=== PATIENT | female | born 1975 | race African-American/Black ===

== ENCOUNTER 2017-07-31 13:42 | Inpatient (IN) | payer MEDICAID ==
[~2017-07-31] VITALS: Ht 154.9 cm; Wt 98.8 kg
[2017-07-31] MEDS ORDERED: ACETAMINOPHEN 325 MG TAB PO ONE ×2 (13:52→14:00)
[2017-07-31] MEDS ORDERED: cefTRIAXone SOD 1,000 MG VL IM ONE (16:30)
[2017-07-31] MEDS ORDERED: cefTRIAXone 1GM/10ml IVPUSH 10 ML IV ONE (17:15)
[2017-07-31] MEDS ORDERED: AZITHROMYCIN 500MG/ 250ML 250 ML IV ONE (17:15)
[2017-07-31 17:36] LABS: Urine Bacteria MOD /hpf (None Seen); Urine Blood TRACE /uL (Negative); Urine Mucus FEW (None Seen); Urine Specific Gravity 1.017 (1.001-1.035); Urine WBC 159 /hpf (0 - 5); Urine WBC Clumps PRESENT /hpf (None Seen)
[2017-07-31 18:08] LABS: Basophils # (auto) 0 uL; Eosinophils # (auto) 0.2 uL; Lymphocytes # (auto) 1.7 uL; Platelet Count (auto) 373 10^3/uL (140-450)
[2017-07-31 18:10] LABS: Basophils % (auto) 0.5 % (0.0-2.0); Eosinophils % (auto) 2.2 % (0.0-7.0); Hematocrit 37.3 % (36.0-46.0); Hemoglobin 12.1 g/dL (12.2-16.2); Lymphocytes % (auto) 19.9 % (10.0-50.0); Mean Corpuscular Hemoglobin 21.3 pg (28.0-32.0); Mean Corpuscular Hgb Conc. 32.5 g/dL (32.0-36.0); Mean Corpuscular Volume 65.5 fL (80.0-100.0); Monocytes # (auto) 0.9 uL; Monocytes % (auto) 10.6 % (0.0-12.0); Neutrophils # (auto) 5.8 uL; Neutrophils % (auto) 66.8 % (37.0-80.0); Nucleated Red Blood Cells % 0.1 %; Red Blood Cells 5.69 10^6/uL (4.0-5.20); White Blood Cell 8.7 10^3/uL (4.4-10.8)
[2017-07-31 18:25] LABS: Albumin 3.1 g/dL (3.4-5.0); BUN/Creatinine Ratio 7.5; Bilirubin, Total 0.5 mg/dL (0.2-1.0); Calcium 8.6 mg/dL (8.5-10.1); Potassium 3.3 mmol/L (3.5-5.1)
[2017-07-31] MEDS ORDERED: SODIUM CHLORIDE 0.9% 1,000 ML IV ONE (18:30)
[2017-07-31] MEDS: SODIUM CHLORIDE 0.9% 1,000 ML IV SCH (18:44)
[2017-07-31] MEDS ORDERED: MORPHINE SULF INJ 2 MG/ML SYRINGE 1ML IV PRN ×2 (18:45)
[2017-07-31] MEDS ORDERED: LACTULOSE 20Gm/30ML SOLN PO PRN (18:45)
[2017-07-31] MEDS ORDERED: OSELTAMIVIR 75 MG CAP PO ONE (18:45)
[2017-07-31] MEDS ORDERED: TEMAZEPAM 15 MG CAP PO PRN (18:45)
[2017-07-31] MEDS ORDERED: LORazepam 0.5 MG TAB PO PRN (18:45)
[2017-07-31] MEDS ORDERED: ACETAMINOPHEN 500 MG TAB PO PRN (18:45)
[2017-07-31] MEDS ORDERED: PROMETHAZINE HCL 25 MG/ML 1ML IV PRN (18:45)
[2017-07-31] MEDS ORDERED: ALBUTEROL SULF 2.5 MG/0.5ML(0.5%) NEB SOLN NEB PRN (18:45)
[2017-07-31] MEDS ORDERED: PIPERACILLIN-TAZOB 3.375GM 50 ML IV ONE (18:45)
[2017-07-31] MEDS ORDERED: NITROGLYCERIN 0.4 MG SL TAB SL PRN (18:45)
[2017-07-31 21:20] VITALS: BP 134/82
[2017-07-31 22:00] VITALS: BP 134/82
[2017-07-31] MEDS: CLINDAMYCIN 600MG IV 50 ML IV SCH (23:11)
[2017-08-01] MEDS: PIPERACILLIN-TAZOB 3.375GM 50 ML IV SCH ×5 (00:35→23:34)
[2017-08-01] MEDS ORDERED: PNEUMOCOCCAL VACC POLYS 25 MCG/0.5 ML VIAL IM ONE (01:00)
[2017-08-01] MEDS ORDERED: INFLUENZA QUAD 2017-2018 0.5 ML SYRG IM ONE (01:00)
[2017-08-01] MEDS: ALBUTEROL SULF 2.5 MG/0.5ML(0.5%) NEB SOLN NEB SCH ×4 (01:12→18:50)
[2017-08-01] MEDS: SODIUM CHLORIDE 0.9% 1,000 ML IV SCH ×3 (02:31→18:44)
[2017-08-01 05:00] VITALS: BP 125/64
[2017-08-01] MEDS: CLINDAMYCIN 600MG IV 50 ML IV SCH (05:18)
[2017-08-01 06:33] LABS: Basophils # (auto) 0 uL; Eosinophils # (auto) 0.3 uL; Lymphocytes # (auto) 1.4 uL; Mean Corpuscular Hemoglobin 21.5 pg (28.0-32.0)
[2017-08-01 06:36] LABS: Basophils % (auto) 0.5 % (0.0-2.0); Eosinophils % (auto) 3.8 % (0.0-7.0); Hematocrit 33.6 % (36.0-46.0); Hemoglobin 11.1 g/dL (12.2-16.2); Lymphocytes % (auto) 18.1 % (10.0-50.0); Mean Corpuscular Volume 65.2 fL (80.0-100.0); Monocytes # (auto) 0.9 uL; Neutrophils # (auto) 5.1 uL; Neutrophils % (auto) 66.6 % (37.0-80.0); Nucleated Red Blood Cells % 0.1 %; Platelet Count (auto) 320 10^3/uL (140-450); Red Blood Cells 5.15 10^6/uL (4.0-5.20); Red Cell Distribution Width 18.8 % (11.8-14.3); White Blood Cell 7.7 10^3/uL (4.4-10.8)
[2017-08-01 06:48] LABS: Albumin 2.6 g/dL (3.4-5.0); BUN/Creatinine Ratio 7.1; Bilirubin, Total 0.5 mg/dL (0.2-1.0); Calcium 7.8 mg/dL (8.5-10.1); Potassium 3.1 mmol/L (3.5-5.1); Total Protein 7.8 g/dL (6.4-8.2)
[2017-08-01 08:00] VITALS: BP 106/55
[2017-08-01 09:00] VITALS: BP 106/77
[2017-08-01] MEDS: HYDROcodone-ACET 5/325MG TAB PO PRN ×2 (09:17→17:29)
[2017-08-01] MEDS ORDERED: AZITHROMYCIN 500MG/ 250ML 250 ML IV SCH (10:00)
[2017-08-01] MEDS: OSELTAMIVIR 75 MG CAP PO SCH ×2 (10:00→21:43)
[2017-08-01 13:00] VITALS: BP 92/63
[2017-08-01] MEDS ORDERED: POTASSIUM CHLORIDE 40 MEQ, LIDOCAINE 1% (LOCAL ANESTH.) 4 ML in SODIUM CHL 0.9% 100 ML IV ONE (14:15)
[2017-08-01 16:49] VITALS: BP 105/66
[2017-08-01 22:00] VITALS: BP 91/62
[2017-08-02] MEDS: ALBUTEROL SULF 2.5 MG/0.5ML(0.5%) NEB SOLN NEB SCH ×4 (00:37→19:12)
[2017-08-02] MEDS: SODIUM CHLORIDE 0.9% 1,000 ML IV SCH ×3 (02:12→18:39)
[2017-08-02 05:00] VITALS: BP 91/59
[2017-08-02] MEDS: PIPERACILLIN-TAZOB 3.375GM 50 ML IV SCH ×3 (05:40→17:52)
[2017-08-02 08:00] VITALS: BP 95/62
[2017-08-02 09:00] VITALS: BP 95/62
[2017-08-02] MEDS: OSELTAMIVIR 75 MG CAP PO SCH (10:00)
[2017-08-02 10:06] LABS: Basophils # (auto) 0.1 uL; Eosinophils # (auto) 0.2 uL; Eosinophils % (auto) 3.2 % (0.0-7.0); Hemoglobin 10.6 g/dL (12.2-16.2); Red Cell Distribution Width 18.7 % (11.8-14.3)
[2017-08-02 10:08] LABS: Basophils % (auto) 0.9 % (0.0-2.0); Hematocrit 32.6 % (36.0-46.0); Lymphocytes # (auto) 1.3 uL; Lymphocytes % (auto) 16.8 % (10.0-50.0); Mean Corpuscular Hemoglobin 21.1 pg (28.0-32.0); Mean Corpuscular Hgb Conc. 32.6 g/dL (32.0-36.0); Monocytes # (auto) 0.7 uL; Monocytes % (auto) 9.6 % (0.0-12.0); Neutrophils # (auto) 5.2 uL; Neutrophils % (auto) 69.5 % (37.0-80.0); Platelet Count (auto) 348 10^3/uL (140-450); Red Blood Cells 5.03 10^6/uL (4.0-5.20); White Blood Cell 7.5 10^3/uL (4.4-10.8)
[2017-08-02 10:20] LABS: Mean Corpuscular Volume 64.7 fL (80.0-100.0)
[2017-08-02 10:30] LABS: Albumin 2.5 g/dL (3.4-5.0); BUN/Creatinine Ratio 6.3; Bilirubin, Total 0.3 mg/dL (0.2-1.0); Calcium 7.8 mg/dL (8.5-10.1); Potassium 3.4 mmol/L (3.5-5.1); Total Protein 7.5 g/dL (6.4-8.2)
[2017-08-02 21:51] VITALS: BP 109/67
[2017-08-03] MEDS: PIPERACILLIN-TAZOB 3.375GM 50 ML IV SCH ×3 (00:09→11:42)
[2017-08-03] MEDS: ALBUTEROL SULF 2.5 MG/0.5ML(0.5%) NEB SOLN NEB SCH ×4 (00:55→19:23)
[2017-08-03] MEDS: SODIUM CHLORIDE 0.9% 1,000 ML IV SCH ×3 (04:08→18:51)
[2017-08-03 05:00] VITALS: BP 122/74
[2017-08-03 05:43] LABS: Eosinophils # (auto) 0.3 uL; Hemoglobin 10.8 g/dL (12.2-16.2); Monocytes # (auto) 0.6 uL; Nucleated Red Blood Cells % 0.2 %
[2017-08-03 05:46] LABS: Basophils # (auto) 0 uL; Basophils % (auto) 0.7 % (0.0-2.0); Eosinophils % (auto) 4.6 % (0.0-7.0); Hematocrit 33.6 % (36.0-46.0); Lymphocytes # (auto) 1.4 uL; Lymphocytes % (auto) 20.5 % (10.0-50.0); Mean Corpuscular Hemoglobin 21.1 pg (28.0-32.0); Mean Corpuscular Hgb Conc. 32.2 g/dL (32.0-36.0); Mean Corpuscular Volume 65.5 fL (80.0-100.0); Neutrophils # (auto) 4.5 uL; Neutrophils % (auto) 65.2 % (37.0-80.0); Platelet Count (auto) 378 10^3/uL (140-450); Red Blood Cells 5.13 10^6/uL (4.0-5.20); Red Cell Distribution Width 18.5 % (11.8-14.3)
[2017-08-03 06:01] LABS: Albumin 2.4 g/dL (3.4-5.0); Calcium 8.1 mg/dL (8.5-10.1); Potassium 3.4 mmol/L (3.5-5.1)
[2017-08-03 06:03] LABS: BUN/Creatinine Ratio 6.2
[2017-08-03 06:05] LABS: Bilirubin, Total 0.2 mg/dL (0.2-1.0); Total Protein 7.2 g/dL (6.4-8.2)
[2017-08-03 09:00] VITALS: BP 137/79
[2017-08-03 13:00] VITALS: BP 131/90
[2017-08-03] MEDS ORDERED: POTASSIUM CHL 20 Meq TABLET PO ONE (16:00)
[2017-08-03] MEDS ORDERED: LEVOFLOXACIN 500MG 100 ML IV ONE (16:00)
[2017-08-03] MEDS ORDERED: VANCOMYCIN PER PHARMACY 0 MG IV SCH (16:00)
[2017-08-03 17:00] VITALS: BP 135/77
[2017-08-03] MEDS ORDERED: VANCOMYCIN 1GM/250ML 250 ML IV SCH (17:00)
[2017-08-03] MEDS: VANCOMYCIN 1GM/250ML 250 ML IV SCH (19:17)
[2017-08-03 20:40] VITALS: BP 135/77
[2017-08-03 22:00] VITALS: BP 120/67
[2017-08-04] MEDS: ALBUTEROL SULF 2.5 MG/0.5ML(0.5%) NEB SOLN NEB SCH ×4 (00:19→18:44)
[2017-08-04] MEDS: SODIUM CHLORIDE 0.9% 1,000 ML IV SCH (03:36)
[2017-08-04] MEDS: VANCOMYCIN 1GM/250ML 250 ML IV SCH ×3 (03:36→19:55)
[2017-08-04 04:47] VITALS: BP 119/66
[2017-08-04 06:27] LABS: Basophils # (auto) 0.1 uL; Eosinophils # (auto) 0.3 uL; Lymphocytes # (auto) 1.5 uL; White Blood Cell 7.1 10^3/uL (4.4-10.8)
[2017-08-04 06:30] LABS: Eosinophils % (auto) 4.9 % (0.0-7.0); Hematocrit 33.8 % (36.0-46.0); Lymphocytes % (auto) 20.9 % (10.0-50.0); Mean Corpuscular Hemoglobin 21.3 pg (28.0-32.0); Mean Corpuscular Hgb Conc. 32.6 g/dL (32.0-36.0); Mean Corpuscular Volume 65.2 fL (80.0-100.0); Monocytes # (auto) 0.5 uL; Monocytes % (auto) 7.5 % (0.0-12.0); Neutrophils # (auto) 4.6 uL; Neutrophils % (auto) 65.7 % (37.0-80.0); Nucleated Red Blood Cells % 0.1 %; Platelet Count (auto) 428 10^3/uL (140-450); Red Blood Cells 5.18 10^6/uL (4.0-5.20); Red Cell Distribution Width 18.3 % (11.8-14.3)
[2017-08-04 06:46] LABS: Albumin 2.6 g/dL (3.4-5.0); BUN/Creatinine Ratio 3.8; Calcium 8.6 mg/dL (8.5-10.1); Potassium 3.8 mmol/L (3.5-5.1)
[2017-08-04 06:49] LABS: Bilirubin, Total 0.3 mg/dL (0.2-1.0); Total Protein 7.8 g/dL (6.4-8.2)
[2017-08-04 08:00] VITALS: BP 134/103
[2017-08-04 09:00] VITALS: BP 134/103
[2017-08-04] MEDS: LEVOFLOXACIN 500MG 100 ML IV SCH (09:15)
[2017-08-04 13:00] VITALS: BP 127/78
[2017-08-04 17:00] VITALS: BP 129/86
[2017-08-04] MEDS: HYDROcodone-ACET 5/325MG TAB PO PRN (21:03)
[2017-08-04 22:00] VITALS: BP 117/69
[2017-08-05] MEDS: ALBUTEROL SULF 2.5 MG/0.5ML(0.5%) NEB SOLN NEB SCH ×3 (00:19→11:50)
[2017-08-05] MEDS: VANCOMYCIN 1GM/250ML 250 ML IV SCH ×2 (03:05→11:15)
[2017-08-05 04:44] VITALS: BP 109/68
[2017-08-05] MEDS: HYDROcodone-ACET 5/325MG TAB PO PRN (07:36)
[2017-08-05 08:00] VITALS: BP 141/80
[2017-08-05] MEDS: LEVOFLOXACIN 500MG 100 ML IV SCH (09:06)
[2017-08-05 09:42] VITALS: BP 141/80
[2017-08-05 11:07] VITALS: BP 141/80
== END 2017-08-05 12:50 | disposition home or self-care (01) | DRG 720 ==
LOC: ER 13:42 → TELE 13:43 → ER 18:26 → TELE-WESTW 20:51
PROVIDERS: ADMIT Internal Medicine; ATTEND Internal Medicine
DX: A41.9 Sepsis, unspecified organism (principal); E43 Unspecified severe protein-calorie malnutrition; J18.1 Lobar pneumonia, unspecified organism; I11.9 Hypertensive heart disease without heart failure; E66.01 Morbid (severe) obesity due to excess calories; N39.0 Urinary tract infection, site not specified; D57.3 Sickle-cell trait; I44.0 Atrioventricular block, first degree; E87.6 Hypokalemia; B96.20 Unspecified Escherichia coli [E. coli] as the cause of diseases classified elsewhere; K59.00 Constipation, unspecified; G47.00 Insomnia, unspecified; Z68.41 Body mass index [BMI] 40.0-44.9, adult; Z82.49 Family history of ischemic heart disease and other diseases of the circulatory system; Z83.3 Family history of diabetes mellitus; Z98.51 Tubal ligation status; Z23 Encounter for immunization
CPT/HCPCS: 36415; 71045; 71046; 71250; 80053; 80061; 80202; 81001; 83605; 85025; 87040; 87086; 87088; 87186; 87400; 87493; 93005; 93306; 94640; 96361; 96365; 96366; 96367; 96375; J0696; J1956; J2001; J2543; J3490

== ENCOUNTER 2018-09-09 12:56 | Emergency (ER) | payer OTHER, MEDICAID ==
[~2018-09-09] VITALS: Ht 154.9 cm; Wt 91.2 kg
[2018-09-09 13:52] LABS: Basophils # (auto) 0 uL; Eosinophils # (auto) 0 uL; Hemoglobin 13.6 g/dL (12.2-16.2); Lymphocytes # (auto) 1.2 uL; Monocytes # (auto) 0.8 uL
[2018-09-09 13:53] LABS: Urine Bacteria FEW /hpf (None Seen); Urine Blood TRACE /uL (Negative); Urine Mucus FEW (None Seen); Urine Specific Gravity 1.014 (1.001-1.035); Urine WBC 45 /hpf (0 - 5)
[2018-09-09 13:54] LABS: Basophils % (auto) 0.3 % (0.0-2.0); Hematocrit 40.9 % (36.0-46.0); Lymphocytes % (auto) 13.1 % (10.0-50.0); Mean Corpuscular Hemoglobin 23.5 pg (28.0-32.0); Mean Corpuscular Hgb Conc. 33.3 g/dL (32.0-36.0); Mean Corpuscular Volume 70.6 fL (80.0-100.0); Monocytes % (auto) 8.5 % (0.0-12.0); Neutrophils # (auto) 7.4 uL; Neutrophils % (auto) 78.1 % (37.0-80.0); Nucleated Red Blood Cells % 0.1 %; Platelet Count (auto) 292 10^3/uL (140-450); Red Cell Distribution Width 17.9 % (11.8-14.3); White Blood Cell 9.5 10^3/uL (4.4-10.8)
[2018-09-09 14:06] LABS: Albumin 3.2 g/dL (3.4-5.0); Amylase 57 U/L (25-115); Anion Gap 7 (5-15); Blood Urea Nitrogen 7 mg/dL (7-18); Calcium 8.4 mg/dL (8.5-10.1); Carbon Dioxide 25 mmol/L (21-32); Chloride 108 mmol/L (98-107); Glucose 93 mg/dL (74-106); Lipase 77 U/L (73-393); Magnesium 1.9 mg/dL (1.6-2.6); Potassium 3.2 mmol/L (3.5-5.1); Sodium 140 mmol/L (136-145)
[2018-09-09 14:12] LABS: Alanine Aminotransferase 14 U/L (13-56); Alkaline Phosphatase 81 U/L (45-117); Aspartate Aminotransferase 10 U/L (15-37); BUN/Creatinine Ratio 6.9; Bilirubin, Total 0.5 mg/dL (0.2-1.0); GFR African American 78 mL/min; GFR Non-African American 64 mL/min; Total Protein 7.6 g/dL (6.4-8.2)
[2018-09-09 14:56] VITALS: BP 125/81
[2018-09-09] MEDS ORDERED: KETOROLAC TROMETH 60MG/2ML VIAL IM ONE (16:00)
[2018-09-09] MEDS ORDERED: LIDOCAINE 1% HCL (LOCAL ANESTH.) INJ 20ML MDV ONE (16:11)
[2018-09-09] MEDS ORDERED: cefTRIAXone SOD 1,000 MG VL IM ONE (16:15)
[2018-09-09] MEDS ORDERED: POTASSIUM CHL 20 Meq TABLET PO ONE (16:15)
[2018-09-09] MEDS ORDERED: LIDOCAINE 1% HCL (LOCAL ANESTH.) INJ 20ML MDV IJ ONE (16:30)
== END 2018-09-09 16:38 | disposition home or self-care (01) ==
LOC: ER 13:00
DX: K52.9 Noninfective gastroenteritis and colitis, unspecified (principal); N39.0 Urinary tract infection, site not specified; E87.6 Hypokalemia; Z98.51 Tubal ligation status
CPT/HCPCS: 36415; 80053; 81001; 82150; 83690; 83735; 84484; 84702; 85025; 96372; 99283; J0696; J1885; J2001

== ENCOUNTER 2019-04-08 11:02 | Emergency (ER) | payer MEDICAID, OTHER ==
[~2019-04-08] VITALS: Ht 154.9 cm; Wt 102.7 kg
[2019-04-08 12:20] VITALS: BP 124/80
== END 2019-04-08 14:03 | disposition home or self-care (01) ==
LOC: ER 11:02
DX: R60.9 Edema, unspecified (principal); Z98.51 Tubal ligation status